=== PATIENT | female | born 1975 | race Caucasian/White ===

== ENCOUNTER 2021-03-23 11:08 | Observation (INO) ==
[~2021-03-23 11:08] MED LIST: Clindamycin 900 MG/D5W BAG IVPB ONE; HYDROmorphone PCA* 20 MG/20 ML in PREMIX PCA SCH; NS 0.9% 1000 ml BAG 1,000 ML IVPB SCH
[2021-03-23] MEDS ORDERED: oxyCODONE SR 10 mg TAB ONE (11:46)
[2021-03-23] MEDS ORDERED: Ondansetron 4 mg VIAL 2 MG/ML 2 ml VIAL ONE (11:47)
[2021-03-23 11:50] LABS: Hematocrit 40 % (35-47); Hemoglobin 13.6 g/dL (12.0-16.0); Mean Corpuscular HGB Conc 34 g/dL (31-36); Mean Corpuscular Hemoglobin 31 pg (27-31); Mean Corpuscular Volume 92 fL (80-97); Mean Platelet Volume 8.5 fL (7.4-10.4); Platelet Count 269 10^3/uL (150-450); Red Blood Count 4.34 10^6 /uL (3.70-4.87); Red Cell Distribution Width 13 % (10-15); White Blood Count 5.2 10^3/uL (3.5-10.8)
[2021-03-23 12:04] LABS: Anion Gap 6 mmol/L (2-11); Blood Urea Nitrogen 15 mg/dL (6-24); CO2 Carbon Dioxide 25 mmol/L (22-32); Calcium 9.1 mg/dL (8.6-10.3); Chloride 106 mmol/L (101-111); Glucose 89 mg/dL (70-100); Potassium 3.7 mmol/L (3.5-5.0); Sodium 137 mmol/L (135-145)
[2021-03-23 12:10] LABS: HCG Pregnancy < 0.60 mIU/mL
[2021-03-23] MEDS ORDERED: fentaNYL 100 mcg/2 ml 50 MCG/ML VIAL ONE ×2 (12:25→13:36)
[2021-03-23] MEDS ORDERED: Iohexol 350 (CONTRAST) 200 ML MDV IV ONE ×2 (12:25→14:05)
[2021-03-23] MEDS ORDERED: Heparin 2 UNITS/ML IVPREMIX 1,000 UNIT/500 ML BAG IV ONE ×3 (12:25→12:26)
[2021-03-23] MEDS ORDERED: Midazolam 5 mg/5 ml VIAL 1 mg/ml 5 ml VIAL (5 mg) ONE (12:25)
[2021-03-23] MEDS ORDERED: nitroGLYCERIN DRIP 25,000 MCG/250 ML BTL ONE (12:25)
[2021-03-23] MEDS ORDERED: Lidocaine 1% VIAL 10 MG/ML VIAL ONE (12:26)
[2021-03-23] MEDS ORDERED: HYDROmorphone 1 MG/1 ML SYRINGE ONE ×2 (14:20→15:04)
[2021-03-23] MEDS ORDERED: Albuterol HFA INHALER 8 gm MDI INH PRN (16:58)
[2021-03-23] MEDS: Ondansetron 4 mg VIAL 2 MG/ML 2 ml VIAL IV SCH (20:08)
[2021-03-23] MEDS: NS 0.9% 1,000 ML IV SCH (20:09)
[2021-03-24] MEDS: NS 0.9% 1,000 ML IV SCH ×2 (00:05→08:03)
[2021-03-24] MEDS: Ondansetron 4 mg VIAL 2 MG/ML 2 ml VIAL IV SCH ×2 (02:30→07:52)
[2021-03-24 06:55] LABS: ABS Eosinophils 0.2 10^3/ul (0-0.6); ABS Lymphocytes 1.3 10^3/ul (1.0-4.8); ABS Monocytes 0.8 10^3/ul (0-0.8); ABS Neutrophils 4.9 10^3/ul (1.5-7.7); Eosinophil % 2.3 %; Hematocrit 36 % (35-47); Hemoglobin 12.5 g/dL (12.0-16.0); Lymphocyte % 18.1 %; Mean Corpuscular HGB Conc 35 g/dL (31-36); Mean Corpuscular Hemoglobin 32 pg (27-31); Mean Corpuscular Volume 93 fL (80-97); Mean Platelet Volume 8.8 fL (7.4-10.4); Platelet Count 229 10^3/uL (150-450); Red Blood Count 3.88 10^6 /uL (3.70-4.87); Red Cell Distribution Width 13 % (10-15); White Blood Count 7.2 10^3/uL (3.5-10.8)
[2021-03-24 07:15] LABS: Calcium 8.4 mg/dL (8.6-10.3); Potassium 4.3 mmol/L (3.5-5.0)
[2021-03-24] MEDS ORDERED: HYDROcodone/ACETAMIN 5/325 mg TAB PO PRN (08:53)
[2021-03-24] MEDS ORDERED: Ketorolac 10 mg TAB (NF) PO SCH (09:00)
[2021-03-24] MEDS ORDERED: Flu vaccine *QUAD* 2021-22* 0.5 ML SYRINGE IM ONE (09:00)
[2021-03-24 11:11] VITALS: BP 112/76
== END 2021-03-24 12:17 | disposition home or self-care (01) ==
LOC: SSU 11:08 → CHICATH 11:08
PROVIDERS: ADMIT Radiology Diagnostic Radiology; ATTEND Pediatrics
PROC: ANG.UFE (2021-03-23 12:10)